=== PATIENT | male | born 1965 | race Caucasian/White ===

== ENCOUNTER 2021-06-21 13:51 | Emergency (ER) | payer MEDICAID, OTHER ==
[~2021-06-21] VITALS: Ht 175.3 cm; Wt 109.0 kg
--- NOTE | 2021-06-21 14:50 | PHYS DOC ---
Past Medical History Past Medical History: No Pertinent History Additional Past Medical Histor: DENIES ANY MEDICAL HISTORY OR CONDITIONS Past Surgical History: No Surgical History Smoking Status: Never Smoker Alcohol Use: None Drug Use: None General Adult EDM: Chief Complaint: FLU SYMPTOM HPI: HPI: 55 yo M PMH cognitive delay, presents to the ed with c/o "I'm so scared, I just don't feel good." Complains of body aches, dry cough, rhinorrhea and intermittent headache for the past 4 days. First Covid vaccine was on June 03. Review of Systems: Review of Systems: Constitutional: Denies fever or chills. [] Eyes: Denies change in visual acuity. [] HENT: Denies nasal congestion or sore throat. [] Respiratory: Denies hemoptysis or shortness of breath. [] Cardiovascular: Denies chest pain or edema. [] GI: Denies abdominal pain, nausea, vomiting, bloody stools or diarrhea. [] : Denies dysuria or hematuria Musculoskeletal: Denies back pain or joint pain. [] Integument: Denies rash or diaphoresis Neurologic: Denies neck stiffness, focal weakness or sensory changes. [] Endocrine: Denies polyuria or polydipsia. [] Lymphatic: Denies swollen glands. [] Psychiatric: Denies depression or anxiety. [] Heart Score: C/O Chest Pain: No Risk Factors: Risk Factors: DM, Current or recent (<one month) smoker, HTN, HLP, family history of CAD, obesity. Risk Scores: Score 0 - 3: 2.5% MACE over next 6 weeks - Discharge Home Score 4 - 6: 20.3% MACE over next 6 weeks - Admit for Clinical Observation Score 7 - 10: 72.7% MACE over next 6 weeks - Early Invasive Strategies Allergies: Allergies: Allergies Coded Allergies Type Severity Reaction Last Updated Verified No Known Drug Allergies 07/07/15 No Physical Exam: PE: Constitutional: well nourished, non-toxic appearance. HENT: Normocephalic, atraumatic, Eyes: EOMI, conjunctiva normal, no discharge. Neck: Normal range of motion, supple, Cardiovascular: S1/2 present, regular rhythm Lungs & Thorax: Speaking in full sentences, bilateral equal chest rise, no tachypnea or increased work of breathing Abdomen: soft, no tenderness, Skin: Warm, dry, no erythema, no rash. [] Back: No tenderness, no CVA tenderness. [] Extremities: No tenderness, no cyanosis, Neurologic: Alert and oriented X 3, normal motor function, normal sensory function, no focal deficits noted. [] Psychologic: Affect normal, judgement normal, tearful/emotional mood "I'm so so worried" Current Patient Data: Vital Signs: Vital Signs Date Time Temp Pulse Resp B/P (MAP) Pulse Ox O2 Delivery O2 Flow Rate FiO2 06/21/21 14:12 99.5 96 24 141/111 (108) 95 Room Air 99.5 EKG: EKG: Sinus rhythm 94 bpm, no axis deviation, normal intervals, no T wave inversions, no ST elevations or ST depressions, denies any active chest pain Radiology/Procedures: Radiology/Procedures: IMAGING REPORT Signed PATIENT: CRISTELA GARCÍA ACCOUNT: [id number] : 1965 LOCATION: ER AGE: 55 SEX: M EXAM STATUS: REG ER ORD. PHYSICIAN: BRENDEN BILLINGS DO REASON: cough PROCEDURE: CHEST AP ONLY AP chest. HISTORY: Cough AP view was taken of the chest. Heart is normal in size. Lungs are free of infiltrates. There is no effusion. Patient's taken a poor inspiration. IMPRESSION: 1. No acute infiltrates. Electronically signed by: Daniel Beckett MD (06/21/2021 2:52 PM) [id number] DICTATED and SIGNED BY: DANIEL BECKETT MD DATE: 06/21/21 [id number] IMAGING REPORT Signed PATIENT: CRISTELA GARCÍA ACCOUNT: [id number] : 1965 LOCATION: ER AGE: 55 SEX: M EXAM STATUS: REG ER ORD. PHYSICIAN: BRENDEN BILLINGS DO REASON: soa, r/o pe PROCEDURE: CT ANGIOGRAPHY CHEST CTA chest with contrast dated 06/21/2021. No comparison available. Clinical data indication: Shortness of breath. Evaluate for pulmonary embolus. TECHNIQUE: Contiguous axial imaging the chest was performed following intravenous and demonstration of 100 cc Omnipaque 350. Study was performed as dedicated PE protocol with thin cut coronal MIPS 3-D reconstruction. One or more of the following individualized dose reduction techniques were utilized for this examination: 1. Automated exposure control 2. Adjustment of the mA and/or kV according to patient size 3. Use of iterative reconstruction technique FINDINGS: Contrast bolus is adequate. No evidence of central, lobar or segmental pulmonary embolus. Subsegmental branches are not well evaluated based on technique. Heart size is upper limits of normal. No pericardial effusion. Calcified mediastinal and bilateral hilar lymph nodes. No pathologically enlarged lymph nodes. Thyroid gland is unremarkable. Central airways are patent. Lungs are clear. No consolidation or pleural effusion. No pneumothorax. Minimal linear opacity at the left lung base, likely scar or atelectasis. There are scattered calcified granuloma. Limited images of the upper abdomen unremarkable. Mild fatty infiltration of the liver. Bone windows show no acute findings. Multilevel spondylosis. IMPRESSION: 1. No evidence of central, lobar or segmental pulmonary embolus. 2. Grossly clear lungs. 3. Old granulomatous disease. Electronically signed by: Lobo Smith MD (06/21/2021 5:33 PM) [facility] [place] DICTATED and SIGNED BY: LOBO SMITH MD DATE: 06/21/21 [id number] 0 IMAGING REPORT Signed PATIENT: CRISTELA GARCÍA ACCOUNT: [id number] : 1965 LOCATION: ER AGE: 55 SEX: M EXAM STATUS: REG ER ORD. PHYSICIAN: BRENDEN BILLINGS DO REASON: headache PROCEDURE: CT HEAD WO CONTRAST EXAMINATION: CT head without IV contrast INDICATION:55 years, Male, headache. COMPARISON: None TECHNIQUE: Spiral acquisition of contiguous images from the skull base to the vertex were obtained. Sagittal and coronal 2D reformatted series were provided by the technologist. Soft tissue and bone window algorithms were reviewed. Exposure: One or more of the following individualized dose reduction techniques were utilized for this examination: 1. Automated exposure control 2. Adjustment of the mA and/or kV according to patient size 3. Use of iterative reconstruction technique. FINDINGS: Neither mass, midline shift, intracranial hemorrhage, acute/subacute ischemic changes, nor extraaxial fluid collections are seen. The brain parenchyma is normal in appearance.The ventricles are normal in size. Mucosal thickening in both ethmoid air cells. The remaining visualized paranasal sinuses, mastoid air cells, and middle ears are clear. The orbital contents appear within normal limits. IMPRESSION: 1. No acute intracranial abnormality. 2. Bilateral ethmoidal sinusitis. Electronically signed by: Anne Marie Peterson MD (06/21/2021 4:09 PM) [facility] DICTATED and SIGNED BY: ANNE MARIE PETERSON MD DATE: 06/21/21 [id number] 0 Course & Med Decision Making: Course & Med Decision Making Pertinent Labs and Imaging studies reviewed. (See chart for details) COVID-19 CRITERIA: The patient was evaluated during the global COVID-19 pandemic, and that diagnosis was suspected/considered upon their initial presentation. Their evaluation, treatment and testing was consistent with current guidelines for patients who present with complaints or symptoms that may be related to COVID-19. Concern for URI/COVID-19 in between vaccine dosages. Opponent negative. CT of the chest showed no pulmonary emboli. Will discharge home with strict ED return precautions were given for chest pain, syncope., Dyspnea or difficulty breathing. Encouraged urgent outpatient follow-up with PMD for routine care. Life-threatening processes were considered but are low suspicion at this time, given history, physical exam and ED workup. Pt was educated on all prescription medications and adverse effects. All patient's questions were answered and pt was stable at time of discharge. Life/limb-threatening differential includes but is not limited to, airway emergency or respiratory distress/ARDS or fatigue or head or neck swelling, toxidrome, sepsis/shock, angioedema, anaphylaxis, congestive heart failure, myocarditis, acute myocardial infarction, dysrhythmias, cardiomyopathy, venous thromboembolism, pulmonary emboli, acute necrotizing hemorrhagic encephalopathy ,cerebral venous thrombosis, meningitis, encephalitis or CVA. I have spoken with the patient and/or caregivers. I explained the patient's condition, diagnoses and treatment plan based on the information available to me at this time. I have answered the patient and/or caregiver's questions and addressed any concerns. The patient and/or caregivers have a good understanding of patient's diagnosis, condition and treatment plan as can be expected at this point. Vital signs have been stable. Patient's condition is stable and appropriate for discharge from the emergency department. Patient will pursue further outpatient evaluation with primary care physician or other designated or consulting physician as outlined in the discharge instructions. The patient and/or caregivers are agreeable to this plan of care and follow-up instructions have been explained in detail. The patient and/or caregivers have received these instructions in written form and have expressed an understanding of the discharge instructions. The patient and/or caregivers are aware that any significant change of condition or worsening of symptoms should prompt immediate return to this or the closest emergency department or call to 911. Tony Disclaimer: Tony Disclaimer: This electronic medical record was generated, in whole or in part, using a voice recognition dictation system. Departure Departure Impression: Primary Impression: COVID-19 Disposition: HOME / SELF CARE / HOMELESS Condition: STABLE Referrals: CHRISTY HARVEY MD (PCP) Follow-up with your primary care physician in 24 to 48 hours OR FOLLOW UP WITH FAMILY MEDICINE: [address], [address] [place] [address] Patient Instructions: Upper Respiratory Infection, Adult Additional Instructions: Return to ED immediately if your oxygen level drops below 90% (purchase a pulse oximetry at a medical supply store), difficulties breathing including rapid breathing or increased work of breathing (skin sucking under ribs), chest pain or stroke-like symptoms (facial droop, speech changes, arm/leg weakness). You have been tested for or diagnosed with COVID-19. It is an infection caused by a new type of coronavirus. COVID-19 will cause cold-like or mild flu symptoms in most. It can cause more severe symptoms like problems breathing in some. There is no treatment for COVID-19. The body will clear the infection over time. Self-care will help to ease discomfort. Steps to Take: Self-Care Rest as needed. Healthy habits may help you feel better. Steps include: Choose healthy foods including fruits and vegetables. Drink water throughout the day. Get plenty of sleep each night. If you smoke, try to quit. It may ease breathing. Avoid alcohol. Keep Others Healthy The virus can spread to others. Droplets are released every time you sneeze or cough. The droplets can get into the mouth, nose, or eyes of people near you and lead to infection. To lower the chances of spreading COVID-19 to others: Stay at home until your doctor has said it is safe to leave. If you tested positive this will mean staying isolated until both of the following are true: At least 7 days have passed since the start of illness. You are free of fever for at least 72 hours without the use of medicine. During this time: - Avoid public areas, events, or transportation. Do not return to work or school until your doctor has said it is safe to do so. - Call ahead if you need to go to a medical center. Let them know you may have COVID-19. It will help them guide you where to go. They may also ask you to wear a facemask when you come to the office. - If you call for emergency medical services, let them know you may have COVID- 19. While at home: - Try to avoid close contact with others. Stay about 6 feet away. - If possible, spend most of your time in a separate room from others. - Use a face mask if you will be in close contact with others such as sharing a room or vehicle. - Have someone wipe down common surfaces in the home. Use household final assembly worker every day on areas like doorknobs, counters, or sinks. - Cough or sneeze into a tissue. Throw the tissue away right after use. If a tissue is not available, cough or sneeze into your elbow. - Wash your hands often. Wash them after sneezing or coughing. Use soap and water and wash for at least 20 seconds. Alcohol based hand bottle packing machine cleaner can be used if soap and mina er is not available. - Do not prepare food for others. Avoid sharing personal items like forks, spoons, or toothbrushes. - Avoid close contact with pets while you are sick. There is no evidence of the virus passing to pets. This is a safety step until more is known about this virus. Isolation can be frustrating. Social interaction can help. Keep in touch with friends and family through phone and tech options. You can still interact with others in your home, just keep a safe distance of about 6 feet. Follow-up: Your doctors office will check in with you to see if there are any changes in your health. You may be asked to keep track of symptoms to share with them. They will also let you know when you are clear to be in public again. Problems to Look Out For: Contact your doctor if your recovery is not going as you expect. Get emergency care if you have problems such as: - Trouble breathing - Nonstop chest pain or pressure - Changes in awareness, confusion, or problems waking - Lips or face have bluish color - Worsening of symptoms If you think you have an emergency, call for emergency medical services right away. [facility] DO Jun 21, 2021 14:50
--- NOTE | 2021-06-21 14:54 | RAD ---
AP chest. HISTORY: Cough AP view was taken of the chest. Heart is normal in size. Lungs are free of infiltrates. There is no e ffusion. Patient's taken a poor inspiration. IMPRESSION: 1. No acute infiltrates. Electronically signed by: Daniel Beckett MD (06/21/2021 2:52 PM) [id number]
[2021-06-21 15:15] LABS: BASO % 1 % (0-3); EOS % 1 % (0-3); HEMATOCRIT 43.6 % (39.0-53.0); HEMOGLOBIN 14.8 g/dL (13.0-17.5); LYMPH # 0.7 x10^3/uL (1.0-4.8); LYMPH % 15 % (24-48); MEAN CORPUSCULAR HEMOGLOBIN 30 pg (25-35); MEAN CORPUSCULAR HGB CONC 34 g/dL (31-37); MEAN CORPUSCULAR VOLUME 87 fL (79-100); MONO # 0.8 x10^3/uL (0.0-1.1); MONO % 16 % (0-9); NEUT # 3.4 x10^3/uL (1.8-7.7); NEUT % 68 % (31-73); PLATELET COUNT 244 x10^3/uL (140-400); RED BLOOD COUNT 4.99 x10^6/uL (4.30-5.70); RED CELL DISTRIBUTION WIDTH 14.3 % (11.5-14.5)
[2021-06-21 15:35] LABS: CALCIUM 8.5 mg/dL (8.5-10.1); CREATININE 1.1 mg/dL (0.7-1.3); POTASSIUM 4.6 mmol/L (3.5-5.1)
[2021-06-21 15:40] LABS: ALBUMIN 3.6 g/dL (3.4-5.0); ALBUMIN/GLOBULIN RATIO 1.1 (1.0-1.7); TOTAL BILIRUBIN 0.4 mg/dL (0.2-1.0)
--- NOTE | 2021-06-21 16:12 | RAD ---
EXAMINATION: CT head without IV contrast INDICATION:55 years, Male, headache. COMPARISON: None TECHNIQUE: Spiral acquisition of contiguous images from the skull base to the vertex were obtained. S agittal and coronal 2D reformatted series were provided by the technologist. Soft tissue and bone win cynthia algorithms were reviewed. Exposure: One or more of the following individualized dose reduction techniques were utilized for thi s examination: 1. Automated exposure control 2. Adjustment of the mA and/or kV according to patient size 3. Use of iterative reconstruction technique. FINDINGS: Neither mass, midline shift, intracranial hemorrhage, acute/subacute ischemic changes, nor extraaxial fluid collections are seen. The brain parenchyma is normal in appearance.The ventricles are normal in size. Mucosal thickening in both ethmoid air cells. The remaining visualized paranasal sinuses, mastoid air cells, and middle ears are clear. The orbital contents appear within normal limits. IMPRESSION: 1. No acute intracranial abnormality. 2. Bilateral ethmoidal sinusitis. Electronically signed by: Diane Peterson MD (06/21/2021 4:09 PM) [facility]
[2021-06-21] MEDS ORDERED: IOHEXOL 350 MG/ML 100 ML VIAL. IV ONE (16:45)
[2021-06-21] MEDS ORDERED: CONTRAST GIVEN. MC PRN (16:45)
--- NOTE | 2021-06-21 17:35 | RAD ---
CTA chest with contrast dated 06/21/2021. No comparison available. Clinical data indication: Shortness of breath. Evaluate for pulmonary embolus. TECHNIQUE: Contiguous axial imaging the chest was performed following intravenous and demonstration of 100 cc Om nipaque 350. Study was performed as dedicated PE protocol with thin cut coronal MIPS 3-D reconstructi on. One or more of the following individualized dose reduction techniques were utilized for this examinat ion: 1. Automated exposure control 2. Adjustment of the mA and/or kV according to patient size 3. Use of iterative reconstruction technique FINDINGS: Contrast bolus is adequate. No evidence of central, lobar or segmental pulmonary embolus. Subsegmenta l branches are not well evaluated based on technique. Heart size is upper limits of normal. No pericardial effusion. Calcified mediastinal and bilateral hi lar lymph nodes. No pathologically enlarged lymph nodes. Thyroid gland is unremarkable. Central airways are patent. Lungs are clear. No consolidation or pleural effusion. No pneumothorax. M inimal linear opacity at the left lung base, likely scar or atelectasis. There are scattered calcifie d granuloma. Limited images of the upper abdomen unremarkable. Mild fatty infiltration of the liver. Bone windows show no acute findings. Multilevel spondylosis. IMPRESSION: 1. No evidence of central, lobar or segmental pulmonary embolus. 2. Grossly clear lungs. 3. Old granulomatous disease. Electronically signed by: Lobo Smith MD (06/21/2021 5:33 PM) [facility]
[2021-06-21 18:06] VITALS: BP 128/90
--- NOTE | 2021-06-21 21:20 | EKG ---
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
== END 2021-06-21 18:20 | disposition home or self-care (01) ==
LOC: ER 13:51
DX: U07.1 COVID-19 (principal)
CPT/HCPCS: 36415; 70450; 71045; 71275; 80053; 84484; 85025; 85379; 87426; 93005; 99285; Q9967

== ENCOUNTER 2021-11-04 11:04 | Emergency (ER) | payer MEDICAID ==
[~2021-11-04] VITALS: Ht 170.2 cm; Wt 106.8 kg
[2021-11-04] MEDS: IV NORMAL SALINE 1000ML BAG 1,000 ML IV ONE (15:36)
[2021-11-04 15:42] LABS: BASO % 0 % (0-3); EOS % 0 % (0-3); HEMATOCRIT 46.2 % (39.0-53.0); HEMOGLOBIN 15.5 g/dL (13.0-17.5); LYMPH # 0.7 x10^3/uL (1.0-4.8); LYMPH % 7 % (24-48); MEAN CORPUSCULAR HEMOGLOBIN 30 pg (25-35); MEAN CORPUSCULAR HGB CONC 34 g/dL (31-37); MEAN CORPUSCULAR VOLUME 88 fL (79-100); MONO # 0.6 x10^3/uL (0.0-1.1); MONO % 7 % (0-9); NEUT # 7.7 x10^3/uL (1.8-7.7); NEUT % 86 % (31-73); PLATELET COUNT 280 x10^3/uL (140-400); RED BLOOD COUNT 5.24 x10^6/uL (4.30-5.70); RED CELL DISTRIBUTION WIDTH 13.7 % (11.5-14.5)
[2021-11-04] MEDS: ONDANSETRON PF 4 MG/2 ML VIAL. IVP ONE (15:42)
[2021-11-04] MEDS: ACETAMINOPHEN 500 MG TABLET PO ONE (15:42)
--- NOTE | 2021-11-04 15:43 | PHYS DOC ---
Past Medical History Past Medical History: No Pertinent History Additional Past Medical Histor: DENIES ANY MEDICAL HISTORY OR CONDITIONS Past Surgical History: No Surgical History Smoking Status: Never Smoker Alcohol Use: None Drug Use: None General Adult EDM: Chief Complaint: NAUSEA/VOMITING/DIARRHEA HPI: HPI: Patient is a 55 year old male patient with no significant medical history presenting to the ED today complaining of nausea, vomiting and a cough that began yesterday. Patient denies any abdominal pain, chest pain, shortness of br eath. He states he feels cold. He is looking down not keeping any facial contact, he is avoiding to talk. Review of Systems: Review of Systems: Constitutional: Reports chills. Denies fever Eyes: Denies change in visual acuity. [] HENT: Denies nasal congestion or sore throat. [] Respiratory: Reports cough, denies shortness of breath. [] Cardiovascular: Denies chest pain or edema. [] GI: Reports nausea, vomiting, denies any abdominal pain, diarrhea, bloody stools or hematemesis : Denies dysuria. [] Musculoskeletal: Denies back pain or joint pain. [] Integument: Denies rash. [] Neurologic: Denies headache, focal weakness or sensory changes. [] Psychiatric: Denies depression or anxiety. [] Heart Score: C/O Chest Pain: N/A Risk Factors: Risk Factors: DM, Current or recent (<one month) smoker, HTN, HLP, family history of CAD, obesity. Risk Scores: Score 0 - 3: 2.5% MACE over next 6 weeks - Discharge Home Score 4 - 6: 20.3% MACE over next 6 weeks - Admit for Clinical Observation Score 7 - 10: 72.7% MACE over next 6 weeks - Early Invasive Strategies Current Medications: Current Medications Medications (Trade) Dose Ordered Sig/Poncho Start Time Stop Time Status Last Admin Dose Admin Acetaminophen (Tylenol) 1,000 mg 1X ONCE 11/04/21 15:30 11/04/21 15:34 DC Ondansetron HCl (Zofran) 4 mg 1X ONCE 11/04/21 15:30 11/04/21 15:34 DC Sodium Chloride 1,000 ml @ 1,000 mls/hr 1X ONCE 11/04/21 15:30 11/04/21 16:29 Allergies: Allergies: Allergies Coded Allergies Type Severity Reaction Last Updated Verified No Known Drug Allergies 07/07/15 No Physical Exam: PE: Constitutional: Well developed, well nourished, no acute distress, non-toxic appearance. [] HENT: Normocephalic, atraumatic, bilateral external ears normal, oropharynx moist, no oral exudates, nose normal. [] Eyes: PERRLA, EOMI, conjunctiva normal, no discharge. [] Neck: Normal range of motion, no tenderness, supple, no stridor. [] Cardiovascular:Heart rate regular rhythm, no murmur [] Lungs & Thorax: Bilateral breath sounds clear to auscultation [] Abdomen: Bowel sounds normal, soft, no tenderness, no masses, no pulsatile masses. [] Skin: Warm, dry, no erythema, no rash. [] Back: No tenderness, no CVA tenderness. [] Extremities: No tenderness, no cyanosis, no clubbing, ROM intact, no edema. [] Neurologic: Alert and oriented X 3, normal motor function, normal sensory function, no focal deficits noted. [] Psychologic: Not keeping any eye contact, looking down, avoiding conversations Current Patient Data: Vital Signs: Vital Signs Date Time Temp Pulse Resp B/P (MAP) Pulse Ox O2 Delivery O2 Flow Rate FiO2 11/04/21 11:53 99.8 98 20 159/79 (105) 96 Room Air 99.8 EKG: EKG: [] Radiology/Procedures: Radiology/Procedures: []PROCEDURE: CHEST AP ONLY EXAMINATION: Chest radiograph. VIEWS: Single AP view of the chest COMPARISON: Chest radiograph from 06/13/2021 INDICATION:55 years, Male, cough. FINDINGS: Mild hypoventilatory exam resulting in crowding of the central pulmonary vasculature. Normal cardiomediastinal silhouette. Subtle right basilar peripheral opacity. No pleural effusion or pneumothorax. No acute osseous process. IMPRESSION: Subtle right basilar peripheral opacity may represent atelectasis or acute infiltrate a component of this may represent soft tissue summation. Electronically signed by: Pastor Lara DO (11/04/2021 4:05 PM) [facility] DICTATED and SIGNED BY: PASTOR LARA DO DATE: 11/04/21 [id number] 0 Course & Med Decision Making: Course & Med Decision Making Pertinent Labs and Imaging studies reviewed. (See chart for details) This is a 55-year-old male patient presented to the ED today complaining of nausea, vomiting and cough that began yesterday. Vitals on arrival to the ED temperature 99.8, heart rate 98, respirations 20 on room air, O2 sats 96%, blood pressure 159/79, no history of hypertension Chest x-ray noted for subtle right basilar peripheral opacity may represent atelectasis or acute infiltrate a component of this may represent soft tissue summation. CBC, CMP with no acute findings. UDS positive for methamphetamine Positive for COVID19 Patient was given a liter of fluid and Rocephin in the ED as well as Zofran. Discharged on doxycycline and Zofran. Discharge to home. Follow-up with PCP. Quarantine measures discussed. Dragon Disclaimer: Tony Disclaimer: This electronic medical record was generated, in whole or in part, using a voice recognition dictation system. Departure Departure Impression: Primary Impression: Lab test positive for detection of COVID-19 virus Additional Impressions: Vomiting without nausea Qualified Codes: R11.11 - Vomiting without nausea Right lower lobe pneumonia Qualified Codes: J18.9 - Pneumonia, unspecified organism Disposition: HOME / SELF CARE / HOMELESS Condition: STABLE Referrals: CHRISTY HARVEY MD (PCP) follow up next week Patient Instructions: Nausea and Vomiting, Pneumonia, Adult, Viral Infections Additional Instructions: You are positive for COVID-19 and right lobe pneumonia from COVID-19. We put you on antibiotics, take them as prescribed. Quarantine yourself for 10 days. Push fluids, rest, take Tylenol or Motrin for pain or fever. Maintain good hand hygiene at home. Follow-up with your own doctor in 1 to 2 weeks. Scripts Ondansetron (ONDANSETRON ODT) 4 Mg Tab.rapdis 1 TAB PO PRN Q6-8HRS, #16 TAB Prov: DAVID JONES EDGE GRINDER 11/04/21 Acetaminophen (TYLENOL) 325 Mg Tablet 1-2 TAB PO QID, #60 TAB 2 Refills Prov: DAVID JONES EDGE GRINDER 11/04/21 Doxycycline Hyclate (DOXYCYCLINE HYCLATE) 100 Mg Tablet 1 TAB PO BID, #14 TAB Prov: DAVID JONES EDGE GRINDER 11/04/21 DAVID JONES EDGE GRINDER Nov 04, 2021 15:43
[2021-11-04 15:52] LABS: CALCIUM 8.6 mg/dL (8.5-10.1); CREATININE 0.9 mg/dL (0.7-1.3); GFR 88.3; POTASSIUM 4.4 mmol/L (3.5-5.1)
[2021-11-04 15:58] LABS: MAGNESIUM 2.1 mg/dL (1.8-2.4); TOTAL BILIRUBIN 0.7 mg/dL (0.2-1.0); TOTAL PROTEIN 8.1 g/dL (6.4-8.2)
--- NOTE | 2021-11-04 16:07 | RAD ---
EXAMINATION: Chest radiograph. VIEWS: Single AP view of the chest COMPARISON: Chest radiograph from 06/13/2021 INDICATION:55 years, Male, cough. FINDINGS: Mild hypoventilatory exam resulting in crowding of the central pulmonary vasculature. Normal cardiome diastinal silhouette. Subtle right basilar peripheral opacity. No pleural effusion or pneumothorax. N o acute osseous process. IMPRESSION: Subtle right basilar peripheral opacity may represent atelectasis or acute infiltrate a component of this may represent soft tissue summation. Electronically signed by: Hawk Fitch DO (11/04/2021 4:05 PM) [facility]
[2021-11-04 16:20] LABS: INFLUENZA A PATIENT NEGATIVE (NEGATIVE); INFLUENZA B PATIENT NEGATIVE (NEGATIVE)
[2021-11-04 16:49] LABS: BILIRUBIN,URINE NEGATIVE (NEG); CLARITY,URINE CLEAR; COLOR,URINE YELLOW; NITRITE,URINE NEGATIVE (NEG); PROTEIN,URINE NEGATIVE (NEG-TRACE)
[2021-11-04 16:56] LABS: AMPHETAMINE/METHAMPHETAMINE POS (NEG); BARBITURATES NEG (NEG); BENZODIAZEPINES NEG (NEG); CANNABINOIDS NEG (NEG); COCAINE NEG (NEG); METHADONE NEG (NEG); OPIATES NEG (NEG); PHENCYCLIDINE NEG (NEG)
[2021-11-04 17:01] LABS: BACTERIA,URINE 0 /HPF (0-FEW); RBC,URINE 0 /HPF (0-2); WBC,URINE 0 /HPF (0-4)
[2021-11-04] MEDS: cefTRIAXone IV Push 1 GM VIAL. IVP ONE (17:10)
[2021-11-04 17:50] VITALS: BP 144/74
[2021-11-04] MEDS ORDERED: ONDA4TAB12 PO (17:50)
[2021-11-04] MEDS ORDERED: DOXY100T PO (17:50)
[2021-11-04] MEDS ORDERED: ACET325T9 PO (17:50)
== END 2021-11-04 18:09 | disposition home or self-care (01) ==
LOC: ER 11:04
DX: U07.1 COVID-19 (principal); J18.9 Pneumonia, unspecified organism
CPT/HCPCS: 36415; 71045; 80053; 80307; 81001; 83690; 83735; 85025; 96361; 96374; 96375; 99285; G0480; J0696; J2405; J7030